=== PATIENT | female | born 1960 | race Caucasian/White ===

== ENCOUNTER 2016-10-01 05:10 | Inpatient (IN) | payer OTHER ==
[2016-10-01] VITALS (13 sets, daily range): BP systolic 110–130; BP diastolic 63–72; PULSE 50–76; RESP 16–20; TEMP 97.7–98.1; O2SAT 94–98
[~2016-10-01 05:10] MED LIST: HEPARIN-D5W INJ 250 ML IV SCH; HYDR-3533 PO; NALOXONE HCL 0.4 MG/ML AMP IV PRN; SODIUM CHLORIDE 0.9% FLUSH 10 ML FLUSH IV FLUSH PRN
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
[2016-10-01] MEDS: NITROGLYCERIN 0.4 MG SL 25 TABS/BTL SL PRN ×2 (07:23→07:59)
--- NOTE | 2016-10-01 08:25 | MB ---
cc: SONIA RAZO DATE OF CONSULTATION: 10/01/2016 REASON FOR CONSULTATION [id number] [place]. HISTORY OF PRESENT ILLNESS This is a very nice 56-year-old female who has no prior history of known heart disease. She presented to [place] with symptoms of chest pain, some nausea and vomiting. She states over the course of the past few months she has had progressive shortness of breath and some lower extremity edema. In addition she has had some GI upset. She has prior history of IBS to which she attributed these symptoms. She had some thumb pain and thought maybe this was related to her neuropathy. She states that the pain is in the substernal center of her chest and radiates somewhat to the jaw. She did receive a nitro and had some improvement in symptoms. She still has some intermittent mild symptoms ongoing. Initial troponin was 0.28 and she was transferred to [place] for consideration of cardiac catheterization. PAST MEDICAL HISTORY 1. Degenerative joint disease. 2. Neuropathy. 3. Hiatal hernia. 4. Endometrial/uterine cancer. 5. Irritable bowel syndrome. PAST SURGICAL HISTORY 1. Laminectomy. 2. Hysterectomy. 3. Jaw surgery. MEDICATIONS Reported medication is Lortab. ALLERGIES 1. ASPIRIN. 2. LYRICA. 3. MOTRIN. 4. NONSTEROIDAL ANTI-INFLAMMATORIES. FAMILY HISTORY Denies any family history of early coronary artery disease or sudden cardiac . SOCIAL HISTORY Reports smoking 10 cigarettes a day and drinks a glass of wine about once a week. Rare marijuana use. Denies any drug use. REVIEW OF SYSTEMS A 12-point review of system was performed and negative unless otherwise noted in the history of present illness. PHYSICAL EXAMINATION VITAL SIGNS: Temperature 98, heart rate 52, blood pressure 123/72 mmHg. GENERAL: Alert and oriented x3, in no distress. HEENT: Pupils are reactive to light and accommodation. Extraocular movements are intact. NECK: No jugular venous distention. No thyromegaly. No lymphadenopathy. No carotid bruits. LUNGS: Clear to auscultation bilaterally. CARDIOVASCULAR: Regular rate and rhythm without murmurs, rubs or gallops. ABDOMEN: Nontender, nondistended. Good bowel sounds. No hepatosplenomegaly. EXTREMITIES: No clubbing, cyanosis or edema. Good peripheral pulses. NEUROLOGIC: Cranial nerves intact. Motor and sensory grossly intact. LABORATORY WBC 15.3, hemoglobin 14, platelet count 253. INR is 1. Sodium 143, potassium 3.9, BUN 21, creatinine 0.9. Troponin 0.28. ASSESSMENT [id number] myocardial infarction. PLAN The patient is still having some intermittent mild substernal chest pain in the setting of elevated cardiac biomarkers and mildly abnormal electrocardiogram. Will plan to proceed with cardiac catheterization from a right radial approach. Will hold off on beta-irma given her bradycardia. She has an allergy to aspirin so we may consider Brilinta or Effient to make sure we have appropriate platelet inhibition if we need to intervene. MD ROQUE Nicholson/LETICIA /7:52 AM /8:15 AM
[2016-10-01] MEDS ORDERED: HEPARIN SODIUM - IV 10,000 UNITS/10 ML VIAL IV PRN ×2 (08:45)
[2016-10-01] MEDS ORDERED: SODIUM CHLORIDE 0.9% FLUSH 10 ML FLUSH IV FLUSH SCH (09:00)
[2016-10-01] MEDS ORDERED: IOHEXOL 350 MG/ML 50 ML BTL (for Cath Lab) OTHER ONE (13:00)
[2016-10-01] MEDS ORDERED: FAMOTIDINE 20 MG/2 ML VIAL ONE (13:01)
[2016-10-01] MEDS ORDERED: MIDAZOLAM HCL 2 MG/2 ML VIAL ONE (13:01)
[2016-10-01] MEDS ORDERED: diphenhydrAMINE HCL 50 MG/ML VIAL ONE (13:01)
[2016-10-01] MEDS ORDERED: HYDROCORTISONE SOD SUCCINATE 100 MG VIAL ONE (13:01)
[2016-10-01] MEDS ORDERED: HEPARIN SODIUM - IV 10,000 UNITS/10 ML VIAL ONE (13:31)
--- NOTE | 2016-10-01 14:01 | CATHPROC ---
Patient Feed HIS Report Study Information Study Number Admission Scheduled Start Study Start [id number] Oct 01 2016 5:20AM 10/01/2016 Oct 01 2016 12:44PM [place] Service Cardiac Catheterization Admit Source Facility Department Other [facility] - Glue Line Operator Physician and Clinical Staff Initial [facility] Michael Antonio,RN Other cathlab, cathlab Recorder Susu Ramon,CW OPERATOR TECH2 Scrub [place],RT(R) Procedures Performed Procedure Location (Site) Vessel Name Coronary Angiograms LCA Left Coronary Coronary Angiograms RCA Right Coronary L Heart Cath Wire insertion Radial (right) Radial Art. Equipment Time Mold Stamper And Repairer Description Size Mfg Part Number Used/Scraped TRANSDUCER, TRUWAVE [id number] 13:04 TORRES TALAMANTES * Used W/STOCKCOCK *[id number] *[id number] *[id number] 13:04 ClearSlide PACK, CCL CUSTOM * Used *[id number] 13:04 ClearSlide SUPPORT, ARTERIAL ADULT [id number] Used [id number] 13:04 [employer] PACER PEN, SKIN DUAL W/ RULER * Used *[id number] BAND, RADIAL COMPRESSION TR [id number] 13:55 Sensorin MEDICAL 24CM Used SHORT 24 *[id number] SHEATH, FR6 RADIAL PRELUDE 13:04 Prognomix FR 6 [id number] Used EASE 11CM [id number] 13:04 Prognomix WIRE, EXCHANGE 260CM 3MMJ 260CM Used *[id number] 13:04 NYCOMED OMNIPAQUE, 350 MG, 150ML 150ML [id number] Used [id number] 13:04 MEDEIROS MEDICAL BLANKET,WARM AIR CCL * Used *[id number] History: Allergies Allergy Reaction Aspirin Anaphylaxis Lyrica Anaphylaxis Motrin Anaphylaxis Nonsteroidal Anti-Inflammatory Anaphylaxis Agts History: Risk Factors Family History of Hypertension Dyslipidemia Previous SD Previous Heart Failure Premature CAD No No Yes No No Prior Valve Prior PCI Prior CABG Surgery No No No Cerebrovascular Peripheral Artery Chronic Lung On Dialysis Diabetes Disease Disease Disease No No No No No History: Risk Factors Selection Items Current Smoker History: Symptoms/Diagnosis Selection Items Chest pain History: Stress Tests Stress or Imaging Studies Performed No History: Other Current Smoker Method Packs a Day Years Used Pack Years Yes Cigarettes 1 20 20 Labs Hgb (g/dl) Hct (%) WBC (l/cumm) Platelets (thousands) 11.60-17.00 35.00-51.00 4.00-11.00 150.00-450.00 14.0 41.9 15.3 253 Glucose (mg/dl) BUN (mg/dl) Creatinine (mg/dl) BUN:Creatinine (1:x) 74.00-106.00 7.00-18.00 0.50-1.30 10.00-20.00 138 21 0.9 23.3 Na (meq/l) K (meq/l) 136.00-145.00 3.50-5.10 143 3.9 INR (PTT:PT) 0.90-1.10 1 Troponin I (ng/ml) CPK (u/l) CPK-MB (ng/ML) 0.02-0.05 26.00-308.00 0.50-3.60 0.19 198 Not Drawn Medication Medication Total Dose (Bolus/Oral) Medication Total Dosage/Unit 1% XYLOCAINE 20 mL BENADRYL 50 mg FENTANYL 25 mcg SOLU-CORTEF 100 mg VERSED 1 mg Medications (Bolus/Oral) Medication Time Given Dosage/Unit Administered By Reason SOLU-CORTEF 10/01/2016 1:10:45 PM 100 mg Michael Antonio 100 mg SOLU-CORTEF given in lab by Michael Antonio RN via Peripheral IV. BENADRYL 10/01/2016 1:11:54 PM 50 mg Michael Antonio 50 mg BENADRYL given in lab by Michael Antonio RN via Peripheral IV. VERSED 10/01/2016 1:35:35 PM 1 mg Michael Antonio 1 mg VERSED given in lab by Michael Antonio RN via Peripheral IV. FENTANYL 10/01/2016 1:36:48 PM 25 mcg Michael Antonio 25 mcg FENTANYL given in lab by Michael Antonio RN via Peripheral IV. 1% XYLOCAINE 10/01/2016 1:42:20 PM 20 mL Jean Claude Obregon 20 mL 1% XYLOCAINE given in lab by Jean Claude Obregon in Right Radial via Subcutaneous. Medication (Drip) Medication Time Given Dosage/Unit Concentration/Unit Diluent (ml) Solution IV Solutions 10/01/2016 1:12:06 PM 0 mL (IV) 500 NaCl .9 Patient arrived on IV Solutions in Left Antecubital via Peripheral IV. Pump/Drip Flow = 20 ml/hr usin g NaCl .9. Initial Case Assessment Cardiovascular HR Rhythm NIBP Chest Pain 52 patsy 115/85 2 Edema Present Skin color Skin None Normal Warm Circulatory - Right Pulses Dorsalis Pedis Femoral Radial 2 2 2 Scale (0,1,2,3,4,d) Scale (0,1,2,3,4,d) Neurological State Oriented to time-place- Alert Moves all extremities person Respiration - General Respiration Rate SpO2 (%) O2 (lpm) (B/min) 13 99 2 Final Case Assessment Cardiovascular HR Rhythm NIBP Chest Pain 70 REG 138/75 0 Edema Present Skin color Skin None Normal Warm Circulatory - Right Pulses Dorsalis Pedis Femoral Radial 2 2 2 Scale (0,1,2,3,4,d) Scale (0,1,2,3,4,d) Circulatory - Lower Extremities Color Lower Right Normal Neurological State Oriented to time-place- Alert Moves all extremities person Respiration - General Respiration Rate SpO2 (%) O2 (lpm) (B/min) 14 96 2 Chronological Log Time Study Chronological Log 12:44:09 Patient arrived via Bed. 12:44:10 Patient Name, D.O.B, / Armband Verified By R.N. 12:44:10 Consent signed by the physician and the patient and verified by the Glue Line Operator staff. Vitals capture started with the following parameters, Patient=Adult, Interval=5 min, Initial Pr qydkkx=063 mmHg, 13:10:02 Deflation Rate=5 mmHg 13:10:23 Reference ECG taken 13:10:38 HR=53 bpm, OOAC=154/85 mmhg, SpO2=98 %, Resp=13 B/min, Pain=0, Ross=10, Samuel=2 13:10:45 100 mg SOLU-CORTEF given in lab by Michael Antonio, RN via Peripheral IV. 13:11:10 Pre-op and post- op instructions given; patient acknowledges understanding of instructions. 13:11:10 Verbal Stimulation=2 Physical Stimulation=2 Airway=2 Respiration=2 TOTAL=8. (0=absent, 1=li mited, 2=present) 13:11:28 Allens test performed on the right radial and ulnar artery by Ralph Ramon with a positive resul t 13:11:46 Patient has been NPO for More than 6Hrs. 13:11:49 Skin Breakdown-none 13:11:54 50 mg BENADRYL given in lab by Michael Antonio, RN via Peripheral IV. 13:11:57 A # 20 IV was noted in the Antecubital (left). Grade = 0 13:12:06 Patient arrived on IV Solutions in Left Antecubital via Peripheral IV. Pump/Drip Flow = 20 ml/hr using NaCl .9. 13:12:48 History and physical on the chart or being dictated. Assessment: Initial Case, HR=52 BPM, Rhythm=patsy, IHMK=520/85 mmhg, Chest Pain=2, Edema=None, Color=Normal, Skin = Warm 13:12:49 Right Pulses: Hugo Ped=2, Femoral=2, Radial=2 Neurological: State=Alert, Ox3, ROSARIO Respiration: Resp=13 B/min, SpO2=99 %, O2=2 lpm 13:13:23 Right groin prepped with 2% chlorhexidine, and with a 3 min. waiting time. 13:13:25 Right Radial and groin(s) prepped with 2% chlorhexidine, and with a 3 min. waiting time. 13:13:30 MD paged 13:20:40 HR=66 bpm, ABFI=892/82 mmhg, IyN7=803.0 %, Resp=10 B/min, Pain=0, Ross=10, Samuel=2 13:22:10 Pressure channel 1 zeroed. 13:25:39 HR=77 bpm, SQKR=598/78 mmhg, FdY5=779.0 %, Resp=13 B/min, Pain=0, Ross=10, Samuel=2 13:29:14 HR=74 bpm, JDAW=700/86 mmhg, OzY5=181.0 %, Resp=17 B/min, Pain=0, Ross=10, Samuel=2 13:29:31 MD arrived. 13:30:45 HR=59 bpm, AWQW=532/79 mmhg, SpO2=99.0 %, Resp=14 B/min, Pain=0, Ross=10, Samuel=2 13:35:35 1 mg VERSED given in lab by Michael Antonio, RN via Peripheral IV. 13:35:48 HR=76 bpm, TJZZ=274/80 mmhg, SpO2=98.0 %, Resp=20 B/min, Pain=0, Ross=10, Samuel=2 13:36:48 25 mcg FENTANYL given in lab by Michael Antonio, RN via Peripheral IV. 13:40:45 HR=71 bpm, CTHJ=334/69 mmhg, SpO2=96.0 %, Resp=12 B/min, Pain=0, Ross=10, Samuel=2 13:40:59 20 mg Pepcid given by Serge Antonio Time Out. Correct patient, correct procedure,correct physician, ,power injector not loaded with contrast with surgical 13:41:36 team present. Time Out Concurred by MD, individual staff and WAREHOUSE TECHNICIAN in procedure 13:41:47 Case Start 13:42:13 Verbal Stimulation=2 Physical Stimulation=2 Airway=2 Respiration=2 TOTAL=8. (0=absent, 1=li mited, 2=present) 13:42:20 20 mL 1% XYLOCAINE given in lab by Jean Claude Obregon in Right Radial via Subcutaneous. 13:45:44 HR=70 bpm, OXBE=237/67 mmhg, SpO2=97 %, Resp=16 B/min, Pain=0, Ross=10, Samuel=2 13:46:04 Access site was Radial Artery.RT 13:46:14 A WIRE, EXCHANGE 260CM 3MMJ 260CM was inserted via Radial (right). A SHEATH, FR6 RADIAL PRELUDE EASE 11CM FR 6 was advanced into the Radial (right) using the Perc utaneous 13:46:26 technique. A JR 5.0 INFINITI CATHETER FR 6 was advanced over a wire. OMNIPAQUE, 350 MG, 150ML 150ML was us ed for 13:46:36 injections. Recorded Pressure: LV, HR=78, Condition=Condition 1 13:47:01 (Left Ventricle) LV 141/14/26 Recorded Pressure: LV, Ao, HR=58, Condition=Condition 1 13:47:07 (Left Ventricle) LV 131/7/24, (Aorta) Ao 125/72/94 Recorded Pressure: Ao, HR=55, Condition=Condition 1 13:47:41 (Aorta) Ao 121/71/92 13:48:57 The RCA was injected and visualized at various angles. OMNIPAQUE, 350 MG, 150ML 150ML used . After removing the current catheter a JL 3.5 INFINITI CATHETER FR 6 was advanced over a WIRE, E XCHANGE 260CM 13:50:30 3MMJ 260CM. 13:50:43 HR=78 bpm, VVBC=970/75 mmhg, SpO2=94.0 %, Resp=14 B/min, Pain=0, Ross=10, Samuel=2 13:51:28 The LCA was injected and visualized at various angles. OMNIPAQUE, 350 MG, 150ML 150ML used . 13:53:52 Catheter was removed Assessment: Final Case, HR=70 BPM, Rhythm=REG, LWHU=752/75 mmhg, Chest Pain=0, Edema=None, [place] r=Normal, Skin = Warm Right Pulses: Hugo Ped=2, Femoral=2, Radial=2 13:53:58 Lower Right Extremities: Color=Normal Neurological: State=Alert, Ox3, ROSARIO Respiration: Resp=14 B/min, SpO2=96 %, O2=2 lpm 13:54:27 Catheter(s) removed without difficulty Radial Compression Device Used. 13 mLs of air placed in BAND, RADIAL COMPRESSION TR SHORT 24 24 CM. Affected 13:54:30 hand 98 % O2 saturation. 13:54:58 Case End 13:55:01 Sterile dressing applied to site 13:55:02 No case complications noted. 13:55:02 Cine recording checked. 13:55:04 Bedside Report will be given. 13:55:07 Contrast Scanned 13:55:09 A Left Heart Cath was performed. 13:55:13 Clinical correlaton risk stratification. 13:55:46 HR=69 bpm, HHOA=032/74 mmhg, SpO2=95 %, Resp=13 B/min, Pain=0, Ross=10, Samuel=2 14:00:45 HR=69 bpm, HASR=662/63 mmhg, Resp=14 B/min, Pain=0, Ross=10, Samuel=2 14:00:50 Vitals capture stopped. End Study - Contrast Media Used In Study Contrast Total Opened (mL) Total Used (mL) Total Wasted (mL) Omnipaque 45 45 0 End Study - Maximum Contrast Load Max Contrast Load (mL) 705.6 End Study - Radiation Exposure Fluoro Time (minutes) 1.6 End Study - Sheaths Sheaths Pulled By Sheath Hold Time (min) [place] End Study - Patient Disposition Complications Transferred To No Regular Bed
[2016-10-01] MEDS ORDERED: MISC INFORMATION XX ONE (14:15)
--- NOTE | 2016-10-01 14:19 | MA ---
cc: SONIA RAZO MD DATE 10/01/2016 PROCEDURE PERFORMED 1. Fluoroscopy with interpretation. 2. Left heart catheterization. 3. Coronary angiography. METHOD Risk, benefits and alternatives discussed with the patient. The patient understood and consented to the procedure. PROCEDURE The patient brought to the catheterization lab and placed on the catheterization table. Right wrist was prepped and draped in sterile fashion. Right wrist was anesthetized with 2% lidocaine. Right radial artery was cannulated and a 6-Lithuanian 7 cm sheath was placed without difficulty. LEFT HEART CATHETERIZATION Intraventricular hemodynamics measured at 131/7 mmHg. CORONARY ANGIOGRAPHY 1. Left main coronary is angiographically normal. 2. Left anterior descending coronary artery is a large caliber size vessel. There is bridging myocardium in the mid left anterior descending coronary artery. The remainder left anterior descending coronary is angiographically normal. 3. Left circumflex is a dominant vessel giving rise to left-sided posterior descending branch. Obtuse marginal branch and left-sided posterior descending branch angiographically normal. 4. Right coronary is nondominant, small caliber size, angiographically normal. CONCLUSION 1. Normal coronary arteries with mid left anterior descending coronary, myocardial bridge (benign). 2. Normal left-sided filling pressures. PLAN I am not sure that the myocardial bridge has contributed at all to her presentation. Her symptoms may be more demand mediated. May consider initiation of Norvasc 5 milligrams a day just for vasospasm is a possibility. Follow up on 2-D echocardiogram. Anticipate discharge. Follow-up in outpatient setting with a primary care doc. MD ROQUE Nicholson/CATIE /2:04 PM /2:12 PM
--- NOTE | 2016-10-01 14:37 | HHI.PR ---
Subjective Remarks Follow-up for chest pain Status post cardiac catheterization, discussed with cardiology, jesús calvertaries , no further workup other than echocardiogram. If echocardiogram is normal, okay for discharge. If blood pressure is elevated, start Norvasc for possible spasms otherwise no further medications needed. Per patient, she is chest pain-free, a little groggy but denies any headache or shortness of breath, no palpitations. No wrist pain. Objective Vitals Vital Signs Date Time Temp Pulse Resp B/P Pulse Ox O2 Delivery O2 Flow Rate FiO2 10/01/16 09:00 66 10/01/16 07:45 56 10/01/16 07:45 97.7 59 20 130/68 94 10/01/16 06:00 52 10/01/16 05:00 98.1 55 16 123/72 98 10/01/16 05:00 55 Objective Remarks Not in distress Regular rate and rhythm, no murmurs Clear breath sounds No edema A/P Problem List: (1) NSTEMI (non-ST elevated myocardial infarction) ICD Code: I21.4 Status: Acute Assessment and Plan This is a 56-year-old female who presented with chest pain Mild troponin elevation likely secondary to demand mediated ischemia- troponin 0.19, cardiology consulted, status post cardiac catheterization, discussed with Dr. Obregon, jesús coronaries. No beta blockers needed. If hypertensive, may start Norvasc for possible spasm, cleared for discharge if echocardiogram is normal. Echocardiogram is normal, ejection fraction 55-60%. Discharge patient to home Condition on discharge: Improved Regular Diet as tolerated Ad Mreon activity Rx written: None Follow-up with primary care physician in one week and cardiology in 2 weeks Al Massey MD Oct 01, 2016 14:37
--- NOTE | 2016-10-01 17:58 | ECHRPT ---
Indication: Chest pain, unspecified CONCLUSIONS Normal left ventricular size. Wall thickness is normal. The left ventricular systolic function is low normal with an estimated ejection fraction in the rang e of 50- 55%. Mild mitral valve regurgitation. Trace aortic valve regurgitation. BP: / HR: Rhythm: MEASUREMENTS (Male / Female) Normal Values Technical Quality: 2D ECHO LV Diastolic Diameter PLAX 5.1 cm 4.2 - 5.9 / 3.9 - 5.3 cm LV Systolic Diameter PLAX 3.8 cm IVS Diastolic Thickness 0.9 cm 0.6 - 1.0 / 0.6 - 0.9 cm LVPW Diastolic Thickness 0.7 cm 0.6 - 1.0 / 0.6 - 0.9 cm LV Relative Wall Thickness 0.3 RV Internal Dim ED PLAX 2.5 cm LA Systolic Diameter LX 3.7 cm 3.0 - 4.0 / 2.7 - 3.8 cm M-MODE Aortic Root Diameter MM 3.3 cm AV Cusp Separation MM 2.3 cm DOPPLER AV Peak Velocity 198.0 cm/s AV Peak Gradient 15.7 mmHg LVOT Peak Velocity 89.8 cm/s LVOT Peak Gradient 3.2 mmHg Mitral E Point Velocity 87.9 cm/s Mitral A Point Velocity 67.6 cm/s Mitral E to A Ratio 1.3 TR Peak Velocity 242.0 cm/s TR Peak Gradient 23.4 mmHg FINDINGS LEFT VENTRICLE Normal left ventricular size. Wall thickness is normal. The left ventricular systolic function is low normal with an estimated ejection fraction in the rang e of 50- 55%. RIGHT VENTRICLE Normal right ventricular size and systolic function. LEFT ATRIUM The left atrial size is normal. RIGHT ATRIUM The right atrial size is normal. ATRIAL SEPTUM Normal atrial septal thickness without atrial level shunting by limited color doppler interrogation. AORTA The aortic root and proximal ascending aorta are normal in size on limited imaging. MITRAL VALVE Mild mitral valve regurgitation. AORTIC VALVE Trace aortic valve regurgitation. TRICUSPID VALVE Structurally normal tricuspid valve. No tricuspid valve stenosis or regurgitation. PULMONARY VALVE The pulmonary valve is not well visualized. VESSELS The inferior vena cava is normal in size. PERICARDIUM No pericardial effusion. Raheem Cintron MD (Electronically Signed) Final Date:01 October 2016 17:57
== END 2016-10-01 20:09 | disposition home or self-care (01) | DRG 282 ==
LOC: NEDDLT 05:10 → HCIN 05:20
PROVIDERS: ADMIT Hospitalist; ATTEND Hospitalist
PROC: B2111ZZ Fluoroscopy of Multiple Coronary Arteries using Low Osmolar Contrast (ICD-10-PCS; 2016-10-01)
PROC: 4A023N7 Measurement of Cardiac Sampling and Pressure, Left Heart, Percutaneous Approach (ICD-10-PCS; principal; 2016-10-01 12:15)
DX: I21.4 Non-ST elevation (NSTEMI) myocardial infarction (principal); G62.9 Polyneuropathy, unspecified; K58.0 Irritable bowel syndrome with diarrhea; R11.2 Nausea with vomiting, unspecified; K44.9 Diaphragmatic hernia without obstruction or gangrene; Z85.42 Personal history of malignant neoplasm of other parts of uterus; F12.90 Cannabis use, unspecified, uncomplicated; F17.210 Nicotine dependence, cigarettes, uncomplicated; M19.90 Unspecified osteoarthritis, unspecified site; Z88.6 Allergy status to analgesic agent
CPT/HCPCS: 71010; 80053; 82550; 82552; 83690; 83735; 83880; 84484; 85025; 85610; 85730; 93005; 93306; 93454; C1760; C1769; C1893; J1200; J1644; J1720; J2250; J3010; Q9967

== ENCOUNTER 2016-11-26 14:00 | Observation (INO) | payer OTHER ==
[~2016-11-26] VITALS: Ht 172.7 cm; Wt 100.0 kg
[~2016-11-26 14:00] MED LIST changes: -HEPARIN-D5W INJ 250 ML IV SCH; -NALOXONE HCL 0.4 MG/ML AMP IV PRN; +NITR0.4S SL; -SODIUM CHLORIDE 0.9% FLUSH 10 ML FLUSH IV FLUSH PRN; +VESI10TA PO
[2016-11-26 14:03] VITALS: PULSE 78; RESP 15; TEMP 98.4; O2SAT 97
[2016-11-26] MEDS ORDERED: SODIUM CHLORIDE 0.9% FLUSH 10 ML FLUSH IVF PRN (14:45)
[2016-11-26] MEDS: SODIUM CHLOR 0.9% 1000 ML INJ 1,000 ML IV SCH ×2 (14:50→21:10)
[2016-11-26 15:01] LABS: AUTOMATED NEUTROPHIL # 3.8 TH/MM3 (1.8-7.7); BASOPHIL % 0.5 % (0.0-2.0); EOSINOPHIL # 0.1 TH/MM3 (0-0.4); EOSINOPHIL % 1.9 % (0.0-4.0); HEMATOCRIT 41.7 % (35.0-46.0); HEMO FLAGS DIFF FINAL; LYMPH % 19.6 % (9.0-44.0); LYMPHOCYTE # 1.1 TH/MM3 (1.0-4.8); MEAN CELL VOLUME 93.4 FL (80.0-100.0); MEAN CORPUSCULAR HEMOGLOBIN 31.2 PG (27.0-34.0); MEAN CORPUSCULAR HGB CONC 33.4 % (32.0-36.0); MONO % 8.6 % (0.0-8.0); NEUT % 69.4 % (16.0-70.0); PLATELET COUNT 187 TH/MM3 (150-450); RED BLOOD COUNT 4.47 MIL/MM3 (4.00-5.30); RED CELL DISTRIBUTION WIDTH 12.4 % (11.6-17.2); WHITE BLOOD COUNT 5.4 TH/MM3 (4.0-11.0)
--- NOTE | 2016-11-26 15:01 | PD ---
HPI Chief Complaint: Chest Pain Time Seen by Provider: 14:12 Travel History International Travel<30 days: No Contact w/Intl Traveler<30days: No Traveled to known affect area: No History of Present Illness HPI This is a 56-year-old female with a history of arthritis, chronic back pain, thoracic compression fracture, who presents here as an [facility] ED transfer from [place] by Dr. Aminah nick. The patient presented there with complaints of chest pain and chest tightness. The patient also had epigastric pain. CT scan of the and pelvis was ordered and showed no evidence of acute process. Patient is allergic to IV contrast I was unable to get a CT thoracic angiogram. She was sent here for a VQ scan and if this was negative for chest pain center admission. The patient reports the pain in her chest as tight which was relieved with nitroglycerin. She states that the pain comes and goes. She states it started last night and was relieved with nitroglycerin however returned again this morning which prompted her to go to the emergency department and [place]. PFSH Past Medical History Cardiac Catheterization: Yes (11/01/16) Cardiovascular Problems: Yes (cath) High Cholesterol: Yes (QUIT TAKING STATIN) Diminished Hearing: No Gastrointestinal Disorders: Yes (IBS) Hiatal Hernia: Yes Hypertension: Yes (QUIT TAKING MEDS) Menopausal: Yes Past Surgical History Hysterectomy: Yes (PARTIAL) Other Surgery: Yes (LAMINECTOMY L4/L5, JAW RECONSUCTION, EYE SOCKET RECONSTRUCTION) Social History Alcohol Use: No Tobacco Use: No (PT STATES QUIT TODAY 11/26/16) Substance Use: Yes (MARIJUANA) Allergies-Medications (Allergen,Severity, Reaction): Coded Allergies: Iodinated Contrast- Oral and IV Dye (Verified Allergy, Severe, Anaphylaxis , 11/26/16) aspirin (Unverified Allergy, Severe, Anaphylaxis, 11/26/16) diclofenac (Unverified Allergy, Severe, Anaphylaxis, 11/26/16) etodolac (Unverified Allergy, Severe, Anaphylaxis, 11/26/16) flurbiprofen (Unverified Allergy, Severe, Anaphylaxis, 11/26/16) ibuprofen (Unverified Allergy, Severe, Anaphylaxis, 11/26/16) indomethacin (Unverified Allergy, Severe, Anaphylaxis, 11/26/16) ketoprofen (Unverified Allergy, Severe, Anaphylaxis, 11/26/16) ketorolac (Unverified Allergy, Severe, Anaphylaxis, 11/26/16) naproxen (Unverified Allergy, Severe, Anaphylaxis, 11/26/16) oxaprozin (Unverified Allergy, Severe, Anaphylaxis, 11/26/16) pregabalin (Unverified Allergy, Severe, Anaphylaxis, 11/26/16) Reported Meds & Prescriptions Reported Meds & Active Scripts Active Reported Vesicare (Solifenacin) 10 Mg Tab 10 Mg PO HS Nitrostat SL (Nitroglycerin) 0.4 Mg Subl 0.4 Mg SL DIRECTED PRN 1 tablet under the tongue as needed for chest pain. Repeat every 5 minutes for a total of 3 DOSES or call 911 if NO relief. Lortab (Hydrocodone-Acetaminophen) 5-325 Mg Tab 1 Tab PO Q6H PRN Review of Systems Except as stated in HPI: all other systems reviewed are Neg General / Constitutional: No: Fever, Chills HENT: No: Headaches Cardiovascular: Positive: Chest Pain or Discomfort (sternal), No: Palpitations , Irregular Rhythm Respiratory: Positive: Shortness of Breath, No: Cough Gastrointestinal: Positive: Diarrhea, No: Nausea, Vomiting Genitourinary: No: Dysuria, Flank Pain Musculoskeletal: Positive: Pain (chronic back pain), No: Weakness Neurologic: Positive: Headache (earlier from the nitroglycerin), No: Weakness, Dizziness Physical Exam Narrative GENERAL: Well-developed well-nourished female in no acute respiratory distress. SKIN: Focused skin assessment warm/dry. HEAD: Atraumatic. Normocephalic. EYES: Pupils equal and round. No scleral icterus. No injection or drainage. ENT: No nasal bleeding or discharge. Mucous membranes pink and moist. NECK: Trachea midline. No JVD. CARDIOVASCULAR: Regular rate and rhythm. No murmur appreciated. RESPIRATORY: No accessory muscle use. Clear to auscultation. Breath sounds equal bilaterally. GASTROINTESTINAL: Abdomen soft, non-tender, nondistended. MUSCULOSKELETAL: No obvious deformities. No clubbing. No cyanosis. No edema. NEUROLOGICAL: Awake and alert. No obvious cranial nerve deficits. Motor grossly within normal limits. Normal speech. PSYCHIATRIC: Appropriate mood and affect; insight and judgment normal. Data Data Last Documented VS Vital Signs Date Time Temp Pulse Resp B/P (MAP) Pulse Ox O2 Delivery O2 Flow Rate FiO2 11/26/16 16:50 71 16 109/55 (73) 94 Room Air 11/26/16 14:03 98.4 Orders Orders Ventilation & Perfusion Scan (11/26/16 ) Basic Metabolic Panel (Bmp) (11/26/16 14:32) Ckmb (Isoenzyme) Profile (11/26/16 14:32) Complete Blood Count With Diff (11/26/16 14:32) Troponin I (11/26/16 14:32) Ecg Monitoring (11/26/16 14:32) Iv Access Insert/Monitor (11/26/16 14:32) Oximetry (11/26/16 14:32) Oxygen Administration (11/26/16 14:32) Sodium Chloride 0.9% Flush (Ns Flush) (11/26/16 14:45) Sodium Chlor 0.9% 1000 Ml Inj (Ns 1000 M (11/26/16 14:45) Place In Observation (11/26/16 ) Vital Signs (Adult) Q4H (11/26/16 16:58) Activity Oob With Assistance (11/26/16 16:58) [employer] / Telemetry .CONTINUOUS (11/26/16 16:58) Diet Heart Healthy (11/26/16 Dinner) Sodium Chloride 0.9% Flush (Ns Flush) (11/26/16 17:00) Sodium Chloride 0.9% Flush (Ns Flush) (11/26/16 21:00) Acetaminophen (Tylenol) (11/26/16 17:00) Ondansetron Inj (Zofran Inj) (11/26/16 17:00) Basic Metabolic Panel (Bmp) (11/27/16 06:00) Complete Blood Count With Diff (11/27/16 06:00) Creatine Kinase (Cpk) (11/26/16 20:00) Creatine Kinase (Cpk) (11/27/16 02:00) Troponin I (11/26/16 20:00) Troponin I (11/27/16 02:00) Electrocardiogram (11/26/16 20:00) Electrocardiogram (11/27/16 02:00) Resp Oxygen Jeffry C Titrat 1-4 L (11/26/16 ) Enoxaparin Inj (Lovenox Inj) (11/26/16 17:00) Scd Bilateral/Knee High EFREN.BID (11/26/16 16:58) Bronson Bilateral/Knee High EFREN.QSHIFT (11/26/16 16:58) Naloxone Inj (Narcan Inj) (11/26/16 17:00) Magnesium Hydroxide Liq (Milk Of Magnesi (11/26/16 17:00) Sennosides (Senokot) (11/26/16 17:00) Bisacodyl Supp (Dulcolax Supp) (11/26/16 17:00) Lactulose Liq (Lactulose Liq) (11/26/16 17:00) Consult Cardiology (11/26/16 ) Admit Order (Ed Use Only) (11/26/16 17:00) Nitroglycerin 2% Oint (Nitroglycerin 2% (11/26/16 17:00) Labs Laboratory Tests Test 11/26/16 14:45 White Blood Count 5.4 TH/MM3 Red Blood Count 4.47 MIL/MM3 Hemoglobin 13.9 GM/DL Hematocrit 41.7 % Mean Corpuscular Volume 93.4 FL Mean Corpuscular Hemoglobin 31.2 PG Mean Corpuscular Hemoglobin Concent 33.4 % Red Cell Distribution Width 12.4 % Platelet Count 187 TH/MM3 Mean Platelet Volume 7.1 FL Neutrophils (%) (Auto) 69.4 % Lymphocytes (%) (Auto) 19.6 % Monocytes (%) (Auto) 8.6 % Eosinophils (%) (Auto) 1.9 % Basophils (%) (Auto) 0.5 % Neutrophils # (Auto) 3.8 TH/MM3 Lymphocytes # (Auto) 1.1 TH/MM3 Monocytes # (Auto) 0.5 TH/MM3 Eosinophils # (Auto) 0.1 TH/MM3 Basophils # (Auto) 0.0 TH/MM3 CBC Comment DIFF FINAL Differential Comment Blood Urea Nitrogen 14 MG/DL Creatinine 0.77 MG/DL Random Glucose 105 MG/DL Calcium Level 8.5 MG/DL Sodium Level 139 MEQ/L Potassium Level 3.8 MEQ/L Chloride Level 106 MEQ/L Carbon Dioxide Level 27.0 MEQ/L Anion Gap 6 MEQ/L Estimat Glomerular Filtration Rate 77 ML/MIN Total Creatine Kinase 155 U/L Troponin I LESS THAN 0.02 NG/ML MDM Medical Decision Making Medical Screen Exam Complete: Yes Emergency Medical Condition: Yes Differential Diagnosis ACS versus pulmonary embolus versus musculoskeletal chest wall pain versus peptic ulcer disease Narrative Course This is a 56-year-old female who was sent from [place] emergency department for further evaluation of chest pain and shortness breath. The patient was seen and evaluated and had normal EKG and cardiac enzymes. Concern was for a pulmonary embolus. The patient was seen and evaluated 1 month prior for and non -STEMI. Given the patient's previous non-STEMI and her catheter report which was negative for acute coronary artery vessel disease, I feel she'll be better admitted under observation to the medicine service rather than the chest pain center. The patient does have chest pain it is relieved with nitroglycerin. Her second EKG is within normal limits. The case was discussed with Dr. Panda, who will admit the patient under observation to the [facility] service. She does have 1 inch of nitroglycerin on her anterior chest wall. She is currently pain-free at this time. The patient is not tachycardic. She is not hypoxic. My suspicion for pulmonary embolus is low however she will get a VQ scan. Diagnosis Primary Impression: Chest pain Additional Impressions: Shortness of breath History of non-ST elevation myocardial infarction (NSTEMI) Admitting Information Admitting Physician Requests: Observation Tha Guajardo MD Nov 26, 2016 15:01
[2016-11-26 15:25] LABS: ANION GAP 6 MEQ/L (5-15); BLOOD UREA NITROGEN 14 MG/DL (7-18); CHLORIDE 106 MEQ/L (98-107); GLOMERULAR FILTRATION RATE 77 ML/MIN (>89); POTASSIUM 3.8 MEQ/L (3.5-5.1); SODIUM (NA) 139 MEQ/L (136-145)
[2016-11-26 15:30] LABS: CREATINE KINASE 155 U/L (26-192)
[2016-11-26 16:50] VITALS: BP 109/55; PULSE 71; RESP 16; O2SAT 94
--- NOTE | 2016-11-26 16:50 | RADRPT ---
EXAM DATE/TIME: 11/26/2016 15:50 [facility] COMPARISON: CHEST SINGLE AP, November 26, 2016, 10:04. INDICATIONS : Short of breath for 1 day. DOSE: 8.1 mCi Tc99m MAA IV 1.4 mCi Tc99m DTPA aerosol MEDICAL HISTORY : Smoker. SURGICAL HISTORY : Laminectomy. ENCOUNTER: Initial ACUITY: 1 day PAIN SCALE: 1/10 LOCATION: Bilateral chest TECHNIQUE: Following five minutes of tidal breathing of DTPA aerosol, planar images of the lungs were performed in eight projections. The patient was then injected with MAA, and eight-view perfusion scan was perf ormed. FINDINGS: There is a homogeneous pattern of aerosol delivery to the periphery of both lungs. No focal ventilat ory defects are seen. The perfusion lung scan demonstrates a homogenous pattern of uptake in both lungs. No segmental or s ubsegmental defects are seen. CONCLUSION: Normal examination. Augusta Rogers MD on November 26, 2016 at 16:48 Board Certified Radiologist. This report was verified electronically.
[2016-11-26] MEDS ORDERED: SODIUM CHLORIDE 0.9% FLUSH 10 ML FLUSH IV FLUSH PRN (17:00)
[2016-11-26] MEDS ORDERED: NALOXONE HCL 0.4 MG/ML AMP IV PRN (17:00)
[2016-11-26] MEDS ORDERED: BISACODYL 10 MG SUPP RECTAL PRN (17:00)
[2016-11-26] MEDS ORDERED: SENNOSIDES 8.6 MG TAB PO PRN (17:00)
[2016-11-26] MEDS ORDERED: ACETAMINOPHEN 325 MG TAB PO PRN (17:00)
[2016-11-26] MEDS ORDERED: MAGNESIUM HYDROXIDE SUSP 30 ML CUP PO PRN (17:00)
[2016-11-26] MEDS ORDERED: ENOXAPARIN SODIUM 40 MG/0.4 ML SYRINGE SQ SCH (17:00)
[2016-11-26] MEDS ORDERED: NITROGLYCERIN 2% OINT 1 GM PACKET TOPICAL ONE (17:00)
[2016-11-26] MEDS ORDERED: LACTULOSE SYRUP 20 GM/30 ML CUP PO PRN (17:00)
--- NOTE | 2016-11-26 18:09 | HHI.HP ---
[facility] Unknown Admission Diagnosis Chest pain, hx of previous nstemi, chronic back pain. Diagnoses: (1) Irritable bowel syndrome (IBS) (2) Chest pain (3) History of non-ST elevation myocardial infarction (NSTEMI) (4) Shortness of breath Chief Complaint: Chest pain Travel History International Travel<30 Days: No Contact w/Intl Traveler <30 Da: No Traveled to Known Affected Are: No History of Present Illness The patient is a 56-year-old female with history of irritable bowel syndrome and multiple back issues. She presented to the [facility] emergency department with complaint of chest pain that starts on the right side and radiates to the left side. She described the pain as "excruciating" overnight. It has been intermittent. It did resolve with nitroglycerin. She is starting to develop the pain again at this time. She did have some associated shortness of breath. She had a non-ST elevation KS one month ago and cardiac catheterization at that time showed normal coronary arteries. Review of Systems Constitutional: DENIES: Fever, Chills, Night Sweats Eyes: DENIES: Blurred vision, Vision loss Ears, nose, mouth, throat: DENIES: Hearing loss Respiratory: COMPLAINS OF: Shortness of breath, DENIES: Cough, Wheezing, Sputum production Cardiovascular: COMPLAINS OF: Chest pain, DENIES: Palpitations, Dyspnea on Exertion, Lower Extremity Edema Gastrointestinal: DENIES: Abdominal pain, Constipation, Diarrhea, Nausea, Vomiting Genitourinary: DENIES: Urinary frequency, Urinary incontinence, Urgency, Hematuria, Dysuria, Nocturia Musculoskeletal: DENIES: Joint pain, Muscle aches Integumentary: DENIES: Pruritus, Rash Hematologic/lymphatic: DENIES: Bruising Neurologic: DENIES: Headache Past Family Social History Past Medical History History of non-ST elevation KS Hyperlipidemia Interval bowel syndrome Hypertension Past Surgical History Partial hysterectomy Lumbar laminectomy L4-L5 Jaw reconstruction Eye socket reconstruction Reported Medications Vesicare (Solifenacin) 10 Mg Tab 10 Mg PO HS Nitrostat SL (Nitroglycerin) 0.4 Mg Subl 0.4 Mg SL DIRECTED PRN 1 tablet under the tongue as needed for chest pain. Repeat every 5 minutes for a total of 3 DOSES or call 911 if NO relief. Lortab (Hydrocodone-Acetaminophen) 5-325 Mg Tab 1 Tab PO Q6H PRN Allergies: Coded Allergies: Iodinated Contrast- Oral and IV Dye (Verified Allergy, Severe, Anaphylaxis , 11/26/16) aspirin (Unverified Allergy, Severe, Anaphylaxis, 11/26/16) diclofenac (Unverified Allergy, Severe, Anaphylaxis, 11/26/16) etodolac (Unverified Allergy, Severe, Anaphylaxis, 11/26/16) flurbiprofen (Unverified Allergy, Severe, Anaphylaxis, 11/26/16) ibuprofen (Unverified Allergy, Severe, Anaphylaxis, 11/26/16) indomethacin (Unverified Allergy, Severe, Anaphylaxis, 11/26/16) ketoprofen (Unverified Allergy, Severe, Anaphylaxis, 11/26/16) ketorolac (Unverified Allergy, Severe, Anaphylaxis, 11/26/16) naproxen (Unverified Allergy, Severe, Anaphylaxis, 11/26/16) oxaprozin (Unverified Allergy, Severe, Anaphylaxis, 11/26/16) pregabalin (Unverified Allergy, Severe, Anaphylaxis, 11/26/16) Family History Father had prostate cancer, heart disease. Sister had cervical cancer. Family history also significant for emphysema. Social History Patient states that she is quitting smoking at this time. She has cut down to 4 cigarettes per day. Rare alcohol use. Denies illicit drug use. Physical Exam Vital Signs Vital Signs Date Time Temp Pulse Resp B/P (MAP) Pulse Ox O2 Delivery O2 Flow Rate FiO2 11/26/16 16:50 71 16 109/55 (73) 94 Room Air 11/26/16 14:03 98.4 78 15 97 11/26/16 14:03 70 16 99 Room Air Physical Exam GENERAL: Well-nourished, well-developed female in no acute distress. HEENT: Normocephalic, atraumatic. Pupils equal, round and reactive. Extraocular movements intact. No scleral icterus. No injection or drainage. Oropharynx is clear. Mucous membranes are moist. CARDIOVASCULAR: Regular rate and rhythm without murmurs, gallops, or rubs. RESPIRATORY: Clear to auscultation. No wheezes, rales, or rhonchi. Breathing is non-labored. GASTROINTESTINAL: Abdomen soft, non-tender, nondistended. EXTREMITIES: No lower extremity edema. No calf tenderness. PSYCH: Alert and oriented x 3. Laboratory Laboratory Tests Test 11/26/16 14:45 White Blood Count 5.4 Red Blood Count 4.47 Hemoglobin 13.9 Hematocrit 41.7 Mean Corpuscular Volume 93.4 Mean Corpuscular Hemoglobin 31.2 Mean Corpuscular Hemoglobin Concent 33.4 Red Cell Distribution Width 12.4 Platelet Count 187 Mean Platelet Volume 7.1 Neutrophils (%) (Auto) 69.4 Lymphocytes (%) (Auto) 19.6 Monocytes (%) (Auto) 8.6 Eosinophils (%) (Auto) 1.9 Basophils (%) (Auto) 0.5 Neutrophils # (Auto) 3.8 Lymphocytes # (Auto) 1.1 Monocytes # (Auto) 0.5 Eosinophils # (Auto) 0.1 Basophils # (Auto) 0.0 CBC Comment DIFF FINAL Differential Comment Blood Urea Nitrogen 14 Creatinine 0.77 Random Glucose 105 Calcium Level 8.5 Sodium Level 139 Potassium Level 3.8 Chloride Level 106 Carbon Dioxide Level 27.0 Anion Gap 6 Estimat Glomerular Filtration Rate 77 Total Creatine Kinase 155 Troponin I LESS THAN 0.02 Result Diagram: 11/26/16 1445 11/26/16 1445 Imaging Last Impressions Lung Scan-VQ Nuclear Medicine 11/26/16 0000 Signed Impressions: Service Date/Time: Saturday, November 26, 2016 15:50 - CONCLUSION: Normal examination. K. Aldo Rogers MD Caprini VTE Risk Assessment Caprini VTE Risk Assessment: Mod/High Risk (score >= 2) Caprini Risk Assessment Model Point Value = 1 Point Value = 2 Point Value = 3 Point Value = 5 Age 41-60 Minor surgery BMI > 25 kg/m2 Swollen legs Varicose veins or History of unexplained or recurrent spontaneous Oral contraceptives or hormone replacement Sepsis (< 1 month) Serious lung disease, including pneumonia (< 1 month) Abnormal pulmonary function Acute myocardial infarction Congestive heart failure (< 1 month) History of inflammatory bowel disease Medical patient at bed rest Age 61-74 Arthroscopic surgery Major open surgery (> 45 min) Laparoscopic surgery (> 45 min) Malignancy Confined to bed (> 72 hours) Immobilizing plaster cast Central venous access Age >= 75 History of VTE Family history of VTE Factor V Leiden Prothrombin [id number] Lupus anticoagulant Anticardiolipin antibodies Elevated serum homocysteine Heparin-induced thrombocytopenia Other congenital or acquired thrombophilia Stroke (< 1 month) Elective arthroplasty Hip, pelvis, or leg fracture Acute spinal cord injury (< 1 month) Prophylaxis Regimen Total Risk Factor Score Risk Level Prophylaxis Regimen 0-1 Low Early ambulation 2 Moderate Order ONE of the following: *Sequential Compression Device (SCD) *Heparin 5000 units SQ BID 3-4 Higher Order ONE of the following medications: *Heparin 5000 units SQ TID *Enoxaparin/Lovenox 40 mg SQ daily (WT < 150 kg, CrCl > 30 mL/min) *Enoxaparin/Lovenox 30 mg SQ daily (WT < 150 kg, CrCl > 10-29 mL/min) *Enoxaparin/Lovenox 30 mg SQ BID (WT < 150 kg, CrCl > 30 mL/min) AND/OR *Sequential Compression Device (SCD) 5 or more Highest Order ONE of the following medications: *Heparin 5000 units SQ TID (Preferred with Epidurals) *Enoxaparin/Lovenox 40 mg SQ daily (WT < 150 kg, CrCl > 30 mL/min) *Enoxaparin/Lovenox 30 mg SQ daily (WT < 150 kg, CrCl > 10-29 mL/min) *Enoxaparin/Lovenox 30 mg SQ BID (WT < 150 kg, CrCl > 30 mL/min) AND *Sequential Compression Device (SCD) Assessment and Plan Assessment and Plan 1. Chest pain: Uncertain etiology. Patient had recent non-ST elevation KS, but normal coronary arteries on cardiac catheterization. Follow serial cardiac enzymes. Consult cardiology. Monitor on telemetry. Continue nitroglycerin paste. Continue aspirin. VQ scan is negative. 2. Hyperlipidemia: Patient stopped taking statin. 3. Hypertension: Not on medications currently. Blood pressure is well controlled. 4. Irritable bowel syndrome: Monitor. 5. DVT prophylaxis: Lovenox. Buzz Panda MD Nov 26, 2016 18:09
[2016-11-26 19:17] VITALS: BP 96/51; PULSE 76; RESP 17; TEMP 98.1; O2SAT 95
[2016-11-26] MEDS ORDERED: ALUMINUM/MAGNESIUM/SIMETH 30 ML CUP PO ONE (20:30)
[2016-11-26] MEDS ORDERED: ACETAMINOPHEN/HYDROcodone 325 MG/5 MG TAB PO ONE (20:30)
[2016-11-26 20:55] VITALS: PULSE 69
[2016-11-26] MEDS ORDERED: TOLTERODINE TARTRATE 4 MG CAP LA PO SCH (21:00)
[2016-11-26] MEDS: SODIUM CHLORIDE 0.9% FLUSH 10 ML FLUSH IV FLUSH SCH (21:14)
[2016-11-26] MEDS: ONDANSETRON HCL 4 MG/2 ML VIAL IVP PRN (21:15)
[2016-11-26 23:30] VITALS: O2SAT 95
[2016-11-26 23:41] LABS: CREATINE KINASE 124 U/L (26-192)
[2016-11-26 23:57] VITALS: BP 98/59; PULSE 69; RESP 17; TEMP 98.2; O2SAT 95
[2016-11-27 00:21] VITALS: PULSE 62
[2016-11-27] MEDS: SODIUM CHLOR 0.9% 1000 ML INJ 1,000 ML IV SCH ×2 (00:46→10:45)
[2016-11-27 03:33] VITALS: BP 103/56; PULSE 67; RESP 19; TEMP 98.1; O2SAT 97
[2016-11-27] MEDS: ONDANSETRON HCL 4 MG/2 ML VIAL IVP PRN (03:41)
[2016-11-27 03:52] VITALS: PULSE 69
[2016-11-27 04:16] LABS: BASOPHIL % 0.4 % (0.0-2.0); EOSINOPHIL # 0.1 TH/MM3 (0-0.4); EOSINOPHIL % 3.6 % (0.0-4.0); HEMATOCRIT 43.2 % (35.0-46.0); HEMO FLAGS DIFF FINAL; LYMPH % 34.2 % (9.0-44.0); LYMPHOCYTE # 1.4 TH/MM3 (1.0-4.8); MEAN CELL VOLUME 92.5 FL (80.0-100.0); MEAN CORPUSCULAR HEMOGLOBIN 30.5 PG (27.0-34.0); MONO % 12.5 % (0.0-8.0); NEUT % 49.3 % (16.0-70.0); PLATELET COUNT 175 TH/MM3 (150-450); RED BLOOD COUNT 4.67 MIL/MM3 (4.00-5.30); RED CELL DISTRIBUTION WIDTH 12.8 % (11.6-17.2); WHITE BLOOD COUNT 4.1 TH/MM3 (4.0-11.0)
[2016-11-27 04:27] LABS: BICARBONATE 27.5 MEQ/L (21.0-32.0); POTASSIUM 3.6 MEQ/L (3.5-5.1)
[2016-11-27 05:36] LABS: CREATINE KINASE 127 U/L (26-192)
[2016-11-27 08:17] VITALS: BP 116/56; PULSE 70; RESP 20; TEMP 98.2; O2SAT 96
[2016-11-27] MEDS: SODIUM CHLORIDE 0.9% FLUSH 10 ML FLUSH IV FLUSH SCH (09:27)
[2016-11-27] MEDS ORDERED: amLODIPine BESYLATE 5 MG TAB PO SCH (09:45)
[2016-11-27] MEDS ORDERED: AMLO5 PO (10:28)
--- NOTE | 2016-11-27 10:28 | HHI.DCPOC ---
Discharge Care Plan Diagnosis: (1) Irritable bowel syndrome (IBS) (2) Chest pain Goals to Promote Your Health * To prevent worsening of your condition and complications * To maintain your health at the optimal level Directions to Meet Your Goals Take your medications as prescribed Follow your dietary instruction Follow activity as directed Keep your appointments as scheduled Take your immunizations and boosters as scheduled If your symptoms worsen call your PCP, if no PCP go to Urgent Care Center or Emergency Room Smoking is Dangerous to Your Health. Avoid second hand smoke Call the 24-hour hour crisis hotline for domestic abuse at Buzz Panda MD Nov 27, 2016 10:28
--- NOTE | 2016-11-27 10:32 | HHI.PR ---
Subjective Remarks Follow up chest pain. Patient states that she feels much better. Denies chest pain, dyspnea. Wants to go home. Objective Vitals Vital Signs Date Time Temp Pulse Resp B/P (MAP) Pulse Ox O2 Delivery O2 Flow Rate FiO2 11/27/16 08:17 98.2 70 20 116/56 (76) 96 11/27/16 03:52 69 11/27/16 03:33 98.1 67 19 103/56 (72) 97 11/27/16 00:21 62 11/26/16 23:57 98.2 69 17 98/59 (72) 95 11/26/16 23:30 95 11/26/16 20:55 69 11/26/16 19:17 98.1 76 17 96/51 (66) 95 11/26/16 18:45 11/26/16 16:50 71 16 109/55 (73) 94 Room Air 11/26/16 14:03 98.4 78 15 97 11/26/16 14:03 70 16 99 Room Air I/O 11/26/16 11/26/16 11/26/16 11/27/16 11/27/16 11/27/16 07:00 15:00 23:00 07:00 15:00 23:00 Intake Total 1000 ml Balance 1000 ml Intake IV Total 1000 ml Result Diagram: 11/27/16 0354 11/27/16 0354 Imaging Last Impressions Lung Scan-VQ Nuclear Medicine 11/26/16 0000 Signed Impressions: Service Date/Time: Saturday, November 26, 2016 15:50 - CONCLUSION: Normal examination. Augusta Rogers MD Objective Remarks General: No acute distress. Heart: Regular rate and rhythm. No murmur. Lungs: Clear to auscultation bilaterally. No wheezes, rales, or rhonchi. Breathing is nonlabored. Abdomen: Soft, nontender, nondistended. Extremities: No lower extremity edema. Psych: Alert and oriented. Procedures None Urinary Catheter: No Vascular Central Line Catheter: No A/P Problem List: (1) Irritable bowel syndrome (IBS) ICD Code: K58.9 - Irritable bowel syndrome without diarrhea (2) Chest pain ICD Code: R07.9 - Chest pain, unspecified Status: Acute (3) History of non-ST elevation myocardial infarction (NSTEMI) ICD Code: I25.2 - Old myocardial infarction Status: Acute (4) Shortness of breath ICD Code: R06.02 - Shortness of breath Status: Acute Assessment and Plan 1. Chest pain: Uncertain etiology. Patient had recent non-ST elevation CA, but normal coronary arteries on cardiac catheterization. Serial cardiac enzymes are negative. Monitor on telemetry. Continue aspirin. VQ scan is negative. Cleared for discharge by cardiology. Discussed with Dr. Mathur. 2. Hyperlipidemia: Patient stopped taking statin. 3. Hypertension: Not on medications currently. Blood pressure is well controlled. 4. Irritable bowel syndrome: Monitor. Follow-up as outpatient with GI. 5. DVT prophylaxis: Lovenox. Discharge Planning Discharge home in stable condition. Heart healthy diet. Activity as tolerated. Buzz Panda MD Nov 27, 2016 10:32
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
--- NOTE | 2016-11-27 14:04 | EKG ---
Date Performed: 11/26/2016 Time Performed: 16:29:31 PTAGE: 56 years EKG: Sinus rhythm NORMAL ECG PREVIOUS TRACING 11/26/16 Compared to prior tracing no significant change DOCTOR: Law Mathur Interpretating Date/Time 11/27/2016 14:04:00
--- NOTE | 2016-11-27 14:05 | EKG ---
Date Performed: 11/27/2016 Time Performed: 02:12:38 PTAGE: 56 years EKG: SINUS BRADYCARDIA BORDERLINE ECG PREVIOUS TRACING : 11/26/2016 20.14 Since prior tracing, sinus rate is slower. DOCTOR: Law Mathur Interpretating Date/Time 11/27/2016 14:05:11
--- NOTE | 2016-11-27 14:05 | EKG ---
Date Performed: 11/26/2016 Time Performed: 20:14:03 PTAGE: 56 years EKG: Sinus rhythm NORMAL ECG PREVIOUS TRACING 11/26/16 Compared to prior tracing no significant change DOCTOR: Law Mathur Interpretating Date/Time 11/27/2016 14:04:39
== END 2016-11-27 11:37 | disposition home or self-care (01) ==
LOC: NEPC 14:00 → NEDA 17:02 → NEPGCP 19:01
PROVIDERS: ADMIT Family Medicine; ATTEND Family Medicine
DX: R07.9 Chest pain, unspecified (principal); K58.0 Irritable bowel syndrome with diarrhea; I10 Essential (primary) hypertension; E78.5 Hyperlipidemia, unspecified; R94.31 Abnormal electrocardiogram [ECG] [EKG]; I25.2 Old myocardial infarction; F17.210 Nicotine dependence, cigarettes, uncomplicated
CPT/HCPCS: 71010; 74176; 78582; 80048; 80053; 82550; 82552; 83690; 83735; 83880; 84484; 85025; 85610; 85730; 93005; 96361; 96374; 96376; 99285; A9540; A9567; G0378; J1650; J2405; J7030